=== PATIENT | male | born 1960 | race Native Hawaiian/Other Pacific Islander ===

== ENCOUNTER 2022-12-28 14:16 | Outpatient (CLI) | payer OTHER | END 2022-12-28 20:38 | disposition home or self-care (01) | LOC: RAD 14:16 | PROVIDERS: ATTEND Nurse Practitioner Primary Care | DX: M54.6 Pain in thoracic spine (principal) ==

== ENCOUNTER 2023-03-15 09:57 | Outpatient (CLI) | payer OTHER ==
[2023-03-15 10:51] LABS: PLATELET COUNT 249 K/uL (142-355)
[2023-03-15 10:54] LABS: POTASSIUM 4.3 mmol/L (3.6-5.2)
[2023-03-15 11:15] LABS: PARTIAL THROMBOPLASTIN TIME 33.7 SECONDS (23.9-36.7)
== END 2023-03-15 19:19 | disposition home or self-care (01) ==
LOC: RAD 09:57
PROVIDERS: ATTEND Nurse Practitioner Family
DX: Z01.818 Encounter for other preprocedural examination (principal)
CPT/HCPCS: 36415; 80048; 85027; 85610; 85730; 93005